=== PATIENT | male | born 1985 | race Hispanic/Latino ===

== ENCOUNTER 2020-09-04 11:09 | Emergency (ER) | payer BC, OTHER ==
[2020-09-04] MEDS ORDERED: ACETAMINOPHEN 500 MG TAB ONE (12:06)
[2020-09-04] MEDS ORDERED: ALBUTEROL 2.5 MG/3 ML NEB SOL ONE (12:06)
[2020-09-04] MEDS ORDERED: IPRATROPIUM BROM 0.5MG/2.5ML ONE (12:07)
[2020-09-04] MEDS ORDERED: dexAMETHasone 10 MG/ML VIAL ONE (12:28)
--- NOTE | 2020-09-04 13:10 | RAD REPORT ---
EXAM DESCRIPTION: RAD - Chest Single View - 09/04/2020 1:02 pm CLINICAL HISTORY: SOB Chest pain. COMPARISON: CHEST PA AND LAT 2 VIEW dated 11/01/2006 FINDINGS: Portable technique limits examination quality. Mild to moderate bilateral interstitial lung opacities are present most compatible with viral pneumon ia/ bronchitis. The heart is normal in size. No displaced fractures.
--- NOTE | 2020-09-04 13:53 | ER ---
Nurse's Notes [facility] Name: Jaun Hinkle Jr Age: 35 yrs Sex: Male : 1985 Arrival Date: 09/04/2020 Time: 11:19 Bed 13 Private MD: Diagnosis: Pneumonia due to SARS-associated coronavirus Presentation: 09/04 11:28 Chief complaint: Patient states: Started feeling sick 08/30/20. Had covid positive result ll1 Saturday. SOB for 3 days. States when he went to the clinic his O2 was 90-92% and WBC was low. Coronavirus screen: Client denies travel out of the [place] in the last 14 days. congestion, cough unrelated to allergies, difficulty breathing, fatigue, fever, headache, shortness of breath, Client presents with at least one sign or symptom that may indicate coronavirus-19. Standard/surgical mask placed on the client. Ebola Screen: Patient denies travel to an Ebola-affected area in the 21 days before illness onset. Initial Sepsis Screen: Does the patient meet any 2 criteria? HR > 90 bpm. No. Patient's initial sepsis screen is negative. Does the patient have a suspected source of infection? Yes: Productive cough/pneumonia. Risk Assessment: Do you want to hurt yourself or someone else? Patient reports no desire to harm self or others. Onset of symptoms was August 30, 2020. 11:28 Method Of Arrival: Ambulatory ll1 11:28 Acuity: SOM 3 ll1 Triage Assessment: 11:34 General: Appears in no apparent distress. Behavior is calm, cooperative, appropriate ll1 for age. Pain: Denies pain. Neuro: No deficits noted. Cardiovascular: No deficits noted. Respiratory: Reports shortness of breath cough that is Breath sounds are clear bilaterally. Onset: The symptoms/episode began/occurred 3 days, the patient has mild shortness of breath. Historical: - Allergies: 11:33 No Known Allergies; ll1 - PMHx: 11:33 None; ll1 - PSHx: 11:33 Appendectomy; eye sx; ll1 - Immunization history:: Flu vaccine is not up to date. - Social history:: Smoking status: Patient denies any tobacco usage or history of. Screenin:35 Abuse screen: Denies threats or abuse. Nutritional screening: No deficits noted. ll1 Tuberculosis screening: No symptoms or risk factors identified. Fall Risk None identified. Total Omrales Fall Scale indicates No Risk (0-24 pts). Assessment: 11:35 Cardiovascular: No deficits noted. Rhythm is regular. Respiratory: Airway is patent ll1 Trachea midline Respiratory effort is even, unlabored, Respiratory pattern is regular, symmetrical, Breath sounds are clear bilaterally. 12:30 Reassessment: No changes from previously documented assessment. Patient and/or family ll1 updated on plan of care and expected duration. Pain level reassessed. Patient states feeling better. 13:30 Reassessment: No changes from previously documented assessment. Patient and/or family ll1 updated on plan of care and expected duration. Pain level reassessed. 14:20 Reassessment: No changes from previously documented assessment. Patient and/or family ll1 updated on plan of care and expected duration. Pain level reassessed. Patient is alert, oriented x 3, equal unlabored respirations, skin warm/dry/pink. Patient states feeling better. Patient states symptoms have improved. Vital Signs: 11:28 BP 109 / 77; Pulse 108; Resp 18; Temp 100.4; Pulse Ox 90% ; Weight 97.07 kg; Height 5 ll1 ft. 9 in. (175.26 cm); Pain 0/10; 13:18 BP 96 / 65; Pulse 99; Resp 18; Temp 98.9; Pulse Ox 92% on R/A; ll1 13:32 Pulse Ox 93% on R/A; ll1 11:28 Body Mass Index 31.60 (97.07 kg, 175.26 cm) ll1 11:28 O2 sat 90-93% RA ll1 ED Course: 11:19 Patient arrived in ED. mr 11:27 Yong Kirkland, NAN is PHCP. pm1 11:27 Kristopher Valentin MD is Attending Physician. pm1 11:28 Celina Holden RN is Primary Nurse. ll1 11:32 Triage completed. ll1 11:32 Arm band placed on Patient placed in an exam room, on a stretcher. ll1 11:35 Patient has correct armband on for positive identification. Bed in low position. Call ll1 light in reach. Side rails up X 1. Pulse ox on. 13:02 Chest Single View XRAY In Process Unspecified. EDMS 14:23 No provider procedures requiring assistance completed. Patient did not have IV access ll1 during this emergency room visit. Administered Medications: 11:54 Drug: Albuterol - atroVENT (ipratropium) (3:1) (2.5 mg - 0.5 mg) 3 ml Route: Nebulizer; ll1 14:45 Follow up: Response: No adverse reaction; RASS: Alert and Calm (0) ll1 11:54 Drug: Tylenol 1000 mg Route: PO; ll1 14:45 Follow up: Response: No adverse reaction; Temperature is decreased; RASS: Alert and ll1 Calm (0) 12:15 Drug: Decadron (dexamethasone) 10 mg Route: IM; Site: right deltoid; ll1 14:45 Follow up: Response: No adverse reaction; RASS: Alert and Calm (0) 1 Outcome: 13:52 Discharge ordered by . pm1 14:23 Patient left the ED. ll1 14:23 Discharged to home ambulatory. ll1 14:23 Condition: stable 14:23 Discharge instructions given to patient, Instructed on discharge instructions, follow up and referral plans. medication usage, Demonstrated understanding of instructions, follow-up care, medications, Prescriptions given X 2. Signatures: Dispatcher [employer] Sarah Hoffman Patrick, NAN DIAGRAM CLERK pm1 Celina Holden RN RN 1
--- NOTE | 2020-09-04 13:53 | EDPHYS ---
Physician Documentation [facility] Name: Jaun Hinkle Jr Age: 35 yrs Sex: Male : 1985 Arrival Date: 09/04/2020 Time: 11:19 Bed 13 Private MD: ED Physician Kristopher Valentin HPI: 09/04 12:01 This 35 yrs old Male presents to ER via Ambulatory with complaints of pm1 COVID+,Abnormal labs, Shortness Of Breath. 12:01 The patient or guardian reports cough, flu symptoms. Onset: The symptoms/episode pm1 began/occurred 5 day(s) ago. Severity of symptoms: in the emergency department the symptoms are actually worse. Modifying factors: The symptoms are alleviated by nothing, the symptoms are aggravated by exertion. Associated signs and symptoms: Pertinent positives: fever, shortness of breath, Pertinent negatives: chest pain, sore throat. The patient has not experienced similar symptoms in the past. The patient has been recently seen by a physician: Patient with to a clinic on Saturday. Had blood work and swabs. Informed he had covid and written a prescription for dexamethasone and albuterol neb yesterday. Has labs with him. WBC is normal. Platelets were low at 85 . Historical: - Allergies: 11:33 No Known Allergies; ll1 - PMHx: 11:33 None; ll1 - PSHx: 11:33 Appendectomy; eye sx; ll1 - Immunization history:: Flu vaccine is not up to date. - Social history:: Smoking status: Patient denies any tobacco usage or history of. ROS: 12:01 ENT: Negative for injury, pain, and discharge, Neck: Negative for injury, pain, and pm1 swelling, Cardiovascular: Negative for chest pain, palpitations, and edema. 12:01 Abdomen/GI: Negative for abdominal pain, nausea, vomiting, diarrhea, and constipation, Back: Negative for injury and pain, MS/Extremity: Negative for injury and deformity, Skin: Negative for injury, rash, and discoloration, Neuro: Negative for headache, weakness, numbness, tingling, and seizure. 12:01 Constitutional: Positive for body aches, fever, Negative for poor PO intake. 12:01 Respiratory: Positive for cough, shortness of breath. Exam: 12:01 Constitutional: This is a well developed, well nourished patient who is awake, alert, pm1 and in no acute distress. Head/Face: Normocephalic, atraumatic. ENT: Nares patent. No nasal discharge, no septal abnormalities noted. Tympanic membranes are normal and external auditory canals are clear. Oropharynx with no redness, swelling, or masses, exudates, or evidence of obstruction, uvula midline. Mucous membranes moist. 12:01 Back: No spinal tenderness. No costovertebral tenderness. Full range of motion. Skin: Warm, dry with normal turgor. Normal color with no rashes, no lesions, and no evidence of cellulitis. MS/ Extremity: Pulses equal, no cyanosis. Neurovascular intact. Full, normal range of motion. 12:01 Cardiovascular: Exam negative for acute changes, Rate: tachycardic, actual rate is 108 bpm, Rhythm: regular, Pulses: no pulse deficits are appreciated. 12:01 Respiratory: the patient does not display signs of respiratory distress, Breath sounds: bronchial sounds, that are mild, are heard diffusely. 12:01 Abdomen/GI: Inspection: abdomen appears normal, Palpation: abdomen is soft and non-tender, in all quadrants. 12:01 Neuro: Exam negative for acute changes, Orientation: is normal, Mentation: is normal, Motor: is normal, moves all fours. Vital Signs: 11:28 BP 109 / 77; Pulse 108; Resp 18; Temp 100.4; Pulse Ox 90% ; Weight 97.07 kg; Height 5 ll1 ft. 9 in. (175.26 cm); Pain 0/10; 13:18 BP 96 / 65; Pulse 99; Resp 18; Temp 98.9; Pulse Ox 92% on R/A; ll1 13:32 Pulse Ox 93% on R/A; ll1 11:28 Body Mass Index 31.60 (97.07 kg, 175.26 cm) ll1 11:28 O2 sat 90-93% RA ll1 MDM: 11:29 Patient medically screened. pm1 12:50 Data reviewed: vital signs. pm1 13:51 Counseling: I had a detailed discussion with the patient and/or guardian regarding: the pm1 historical points, exam findings, and any diagnostic results supporting the discharge/admit diagnosis, radiology results, the need for outpatient follow up, to return to the emergency department if symptoms worsen or persist or if there are any questions or concerns that arise at home. 13:53 ED course: Walked with patient around the ER and he does not have any shortness of pm1 breath. He said he feels ready to go home. Due to wheezing present at initial presentation, patient will need steroids. Given dosage here in the ER and he has a prescription for dexamethasone and albuterol nebulizer already. 09/04 11:40 Order name: Chest Single View XRAY; Complete Time: 13:17 pm1 Administered Medications: 11:54 Drug: Albuterol - atroVENT (ipratropium) (3:1) (2.5 mg - 0.5 mg) 3 ml Route: Nebulizer; ll1 14:45 Follow up: Response: No adverse reaction; RASS: Alert and Calm (0) ll1 11:54 Drug: Tylenol 1000 mg Route: PO; ll1 14:45 Follow up: Response: No adverse reaction; Temperature is decreased; RASS: Alert and ll1 Calm (0) 12:15 Drug: Decadron (dexamethasone) 10 mg Route: IM; Site: right deltoid; ll1 14:45 Follow up: Response: No adverse reaction; RASS: Alert and Calm (0) ll1 Disposition: 14:24 Co-signature as Attending Physician, Kristopher Valentin MD. rn Disposition: 09/04/20 13:52 Discharged to Home. Impression: Pneumonia due to SARS-associated coronavirus. - Condition is Stable. - Discharge Instructions: COVID-19. - Prescriptions for Prednisone 20 mg Oral Tablet - take 3 tablet by ORAL route once daily for 5 days; 15 tablet. Guaifenesin AC 10- 100 mg/5 mL Oral Liquid - take 10 milliliter by ORAL route every 4 hours As needed; 240 milliliter. - Medication Reconciliation Form, Thank You Letter, Antibiotic Education, Prescription Opioid Use form. - Follow up: Emergency Department; When: As needed; Reason: Worsening of condition. Follow up: Private Physician; When: 2 - 3 days. - Problem is new. - Symptoms have improved. Signatures: Dispatcher [employer] EDMS Kristopher Valentin MD MD rn Marinas, Patrick, NAN [address] MAGISTRATE pm1 Celina Holden RN RN ll1 Corrections: (The following items were deleted from the chart) 13:58 13:53 ED course: Walked with patient around the ER and he does not have any shortness pm1 of breath. He said he feels ready to go home. Due to wheezing present at initial presentation, will discharge home with steroids. Patient has albuterol nebulizer at home. pm1 14:23 13:52 09/04/2020 13:52 Discharged to Home. Impression: Pneumonia due to SARS-associated ll1 coronavirus. Condition is Stable. Forms are Medication Reconciliation Form, Thank You Letter, Antibiotic Education, Prescription Opioid Use. Follow up: Emergency Department; When: As needed; Reason: Worsening of condition. Follow up: Private Physician; When: 2 - 3 days. Problem is new. Symptoms have improved. pm1
[2020-09-04 14:29] VITALS: BP 96/65; TEMP 98.9
[2020-09-04 14:30] VITALS: O2SAT 93
== END 2020-09-04 14:23 | disposition home or self-care (01) ==
LOC: ER 11:09
DX: U07.1 COVID-19 (principal); J12.82 Pneumonia due to coronavirus disease 2019
CPT/HCPCS: 71045; 96372; 99284; J1100

== ENCOUNTER 2020-09-06 17:12 | Emergency (ER) | payer BC ==
--- NOTE | 2020-09-06 18:00 | RAD REPORT ---
EXAM DESCRIPTION: RAD - Chest Single View - 09/06/2020 5:42 pm CLINICAL HISTORY: DYSPNEA, COVID positive COMPARISON: September 04 TECHNIQUE: AP portable chest image was obtained 09/06/2020 5:42 pm . FINDINGS: Bilateral pneumonia changes are still present with mid and upper lung field opacification improved on the current examination. Patient still has significant bilateral pneumonia findings. No c avitation. Trachea is midline. Heart and vasculature are normal. No measurable pleural effusion and n o pneumothorax. No acute bony abnormality seen. No acute aortic findings suspected. IMPRESSION: Bilateral pneumonia pattern is present but shows improvement from the September 04 study.
[2020-09-06 18:03] LABS: Absolute Lymphocytes (CBC) 0.5 K/uL (0.7-4.9); Basophils % 0.3 % (0-1.3); Hematocrit 46.4 % (39.6-49.0); Lymphocytes % 4.6 % (15.3-44.8); MPV 12.2 fL (7.6-11.3); RBC Red Blood Cell Count 5.37 M/uL (4.33-5.43)
[2020-09-06 18:25] LABS: Protime INR 1.07
[2020-09-06 18:31] LABS: ALT/SGPT 98 U/L (12-78); AST/SGOT 57 U/L (15-37); Albumin 3.2 g/dL (3.4-5.0); Alkaline Phosphatase 54 U/L (45-117); BUN Blood Urea Nitrogen 16 mg/dL (7-18); Bicarbonate 24 mmol/L (21-32); Bilirubin Direct 0.4 mg/dL (0-0.2); Bilirubin Total 1.1 mg/dL (0.2-1.0); Ferritin 1368.5 ng/mL (26-388); Glucose Level 159 mg/dL (74-106); Lipase 181 U/L (73-393); Potassium 4.2 mmol/L (3.5-5.1); Protein, Total 7.9 g/dL (6.4-8.2); Sodium Level 134 mmol/L (136-145); Troponin (Emerg Dept Use Only) < 0.02 ng/mL (0.0-0.045)
[2020-09-06 18:48] LABS: Blood Morphology Comment NOT SEEN (NOT SEEN); Platelet Estimate ADEQ; White Blood Cell Scan OK (OK)
--- NOTE | 2020-09-06 20:00 | RAD REPORT ---
EXAM DESCRIPTION: CT - Chest For Pe Angio - 09/06/2020 7:45 pm CLINICAL HISTORY: DYSPNEA, COVID positive, shortness of breath COMPARISON: Chest Single View dated 09/06/2020 TECHNIQUE: Dynamically enhanced 3 mm thick images of the chest were obtained during administration o f approximately 150mL Isovue 370 IV contrast. Coronal and oblique MIP reconstruction images were gene rated and reviewed. Exam utilizes a protocol to evaluate the pulmonary arterial tree. All CT scans are performed using dose optimization technique as appropriate and may include automated exposure control or mA/KV adjustment according to patient size. FINDINGS: No pulmonary emboli are identified. Far peripheral branch assessment at each lung base [place] ited due to motion. Probability of pulmonary embolic disease is felt to be very low. The aorta as imaged shows no acute or suspicious finding. No pericardial thickening or effusion. Ground-glass opacification scattered throughout all lung corey. None no dense consolidation, mass, c avitation or other significant finding. No pleural effusion or pleural thickening. No mediastinal or hilar suspicious masses. No chest wall masses or abnormal axillary lymphadenopathy. IMPRESSION: No pulmonary emboli identified. Moderate severity bilateral COVID-19 pneumonia.
--- NOTE | 2020-09-06 20:06 | ER ---
Nurse's Notes [facility] Name: Jaun Hinkle Jr Age: 35 yrs Sex: Male : 1985 Arrival Date: 09/06/2020 Time: 17:13 Bed 25 Private MD: Diagnosis: Dyspnea;Coronavirus infection, unspecified Presentation: 09/06 17:23 Chief complaint: Patient states: was COVID + on Saturday, is feeling more SIB over past iw two days. Coronavirus screen: shortness of breath. Ebola Screen: Patient negative for fever greater than or equal to 101.5 degrees Fahrenheit, and additional compatible Ebola Virus Disease symptoms Patient denies exposure to infectious person. Patient denies travel to an Ebola-affected area in the 21 days before illness onset. No symptoms or risks identified at this time. Initial Sepsis Screen: Does the patient meet any 2 criteria? No. Patient's initial sepsis screen is negative. Does the patient have a suspected source of infection? No. Patient's initial sepsis screen is negative. Risk Assessment: Do you want to hurt yourself or someone else? Patient reports no desire to harm self or others. Onset of symptoms was September 05, 2020. 17:23 Method Of Arrival: Ambulatory iw 17:23 Acuity: SOM 3 iw Triage Assessment: 17:35 General: Appears in no apparent distress. Respiratory: Onset: The symptoms/episode iw began/occurred yesterday, the patient has mild shortness of breath. Respiratory: Airway is patent Respiratory effort is even, unlabored. Historical: - Allergies: 17:25 No Known Allergies; iw - PMHx: 17:25 None; iw - PSHx: 17:25 Appendectomy; eye sx; iw - Immunization history:: Adult Immunizations unknown. - Social history:: Smoking status: unknown. Screenin:11 Abuse screen: Denies threats or abuse. Denies injuries from another. Nutritional iw screening: No deficits noted. Tuberculosis screening: No symptoms or risk factors identified. Fall Risk IV access (20 points). Assessment: 17:30 General: Appears in no apparent distress. Behavior is calm, cooperative. Pain: Denies iw pain. Neuro: Level of Consciousness is awake, alert, obeys commands, Oriented to person, place, time, situation, Moves all extremities. Full function. Cardiovascular: Rhythm is regular. Respiratory: Reports shortness of breath at rest on exertion Airway is patent Respiratory effort is even, unlabored, Breath sounds are clear bilaterally. GI: No signs and/or symptoms were reported involving the gastrointestinal system. Derm: Skin is intact, is healthy with good turgor. Musculoskeletal: Range of motion: intact in all extremities. 18:11 Reassessment: Patient appears in no apparent distress at this time. Patient and/or iw family updated on plan of care and expected duration. Pain level reassessed. Patient is alert, oriented x 3, equal unlabored respirations, skin warm/dry/pink. 19:50 Reassessment: Patient appears in no apparent distress at this time. returned from CT. em Vital Signs: 17:23 BP 121 / 83; Pulse 101; Resp 20 S; Temp 98.7; Pulse Ox 95% on R/A; iw 18:11 BP 111 / 78; Pulse 93; Resp 20 S; Pulse Ox 97% on R/A; iw 19:50 BP 116 / 74; Pulse 89; Resp 18; Pulse Ox 95% on R/A; em ED Course: 16:00 Patient has correct armband on for positive identification. iw 17:13 Patient arrived in ED. ds1 17:16 Rick Munoz MD is Attending Physician. kdr 17:16 Marissa Vicente FNP-C [facility]. kb 17:24 Triage completed. iw 17:30 Patient placed. iw 17:38 CXR XRAY In Process Unspecified. EDMS 17:43 Initial lab(s) drawn, by me, sent to lab. Inserted saline lock: 20 gauge in right iw antecubital area, using aseptic technique. Blood collected. 17:48 Micki Dinero, RN is Primary Nurse. iw 19:45 CT Chest For PE Angio In Process Unspecified. EDMS 20:27 No provider procedures requiring assistance completed. IV discontinued, intact, em bleeding controlled, No redness/swelling at site. Pressure dressing applied. Administered Medications: No medications were administered Outcome: 20:05 Discharge ordered by . kb 20:27 Discharged to home ambulatory, with family. em 20:27 Condition: stable 20:27 Discharge instructions given to patient, family, Instructed on discharge instructions, follow up and referral plans. Demonstrated understanding of instructions, follow-up care. 20:28 Patient left the ED. em Signatures: Dispatcher [employer] Marissa Schwarz, [employer]ION PI[employer]URE [employer] WORKER-C [employer] PI[employer]URE SET WORKER-Ckb Rick Munoz MD MD kdr Munoz, Edgar, RN RN Mayra Flower ds1 Micki Dinero RN RN iw
--- NOTE | 2020-09-06 20:06 | EDPHYS ---
Physician Documentation [facility] Name: Jaun Hinkle Jr Age: 35 yrs Sex: Male : 1985 Arrival Date: 09/06/2020 Time: 17:13 Bed 25 Private MD: ED Physician Rick Munoz HPI: 09/06 19:35 This 35 yrs old Male presents to ER via Ambulatory with complaints of kb Shortness Of Breath. 19:35 The patient has shortness of breath at rest. Onset: The symptoms/episode began/occurred kb 3 day(s) ago. Duration: The symptoms are continuous. The patient's shortness of breath is aggravated by exertion. Associated signs and symptoms: Pertinent positives: non-productive cough, fever. Severity of symptoms: At their worst the symptoms were moderate in the emergency department the symptoms are unchanged. The patient has not experienced similar symptoms in the past. The patient has been recently seen at the [facility] Emergency Department. Pt reports he was diagnosed with covid 3 days ago. presents today because shortness of breath has gotten worse. Historical: - Allergies: 17:25 No Known Allergies; iw - PMHx: 17:25 None; iw - PSHx: 17:25 Appendectomy; eye sx; iw - Immunization history:: Adult Immunizations unknown. - Social history:: Smoking status: unknown. ROS: 19:34 ENT: Negative for injury, pain, and discharge, Cardiovascular: Negative for chest pain, kb palpitations, and edema, Abdomen/GI: Negative for abdominal pain, nausea, vomiting, diarrhea, and constipation, MS/Extremity: Negative for injury and deformity, Skin: Negative for injury, rash, and discoloration, Neuro: Negative for headache, weakness, numbness, tingling, and seizure. 19:34 Constitutional: Positive for fever. 19:34 Respiratory: Positive for dyspnea on exertion, shortness of breath. Exam: 19:34 Constitutional: This is a well developed, well nourished patient who is awake, alert, kb and in no acute distress. Head/Face: Normocephalic, atraumatic. Cardiovascular: Regular rate and rhythm with a normal S1 and S2. No gallops, murmurs, or rubs. No pulse deficits. Respiratory: Respirations even and unlabored. No increased work of breathing, no retractions or nasal flaring. Abdomen/GI: Soft, non-tender. No distention Skin: Warm, dry with normal turgor. Normal color. MS/ Extremity: Pulses equal, no cyanosis. Neurovascular intact. Full, normal range of motion. Neuro: Awake and alert, GCS 15, oriented to person, place, time, and situation. Moves all extremities. Normal gait. 19:34 ECG was reviewed by the Attending Physician. Vital Signs: 17:23 BP 121 / 83; Pulse 101; Resp 20 S; Temp 98.7; Pulse Ox 95% on R/A; iw 18:11 BP 111 / 78; Pulse 93; Resp 20 S; Pulse Ox 97% on R/A; iw 19:50 BP 116 / 74; Pulse 89; Resp 18; Pulse Ox 95% on R/A; em MDM: 17:17 Patient medically screened. kb 19:34 Data reviewed: vital signs, nurses notes. Data interpreted: Pulse oximetry: on room air kb is 97 %. Interpretation: normal. Counseling: I had a detailed discussion with the patient and/or guardian regarding: the historical points, exam findings, and any diagnostic results supporting the discharge/admit diagnosis, lab results, radiology results, the need for outpatient follow up, a family practitioner, to return to the emergency department if symptoms worsen or persist or if there are any questions or concerns that arise at home. 09/06 17:18 Order name: D-Dimer 09/06 17:18 Order name: Blood Culture Adult (2) 09/06 17:18 Order name: BMP kb 09/06 17:18 Order name: C-Reactive Protein 09/06 17:18 Order name: CBC with Diff; Complete Time: 18:48 kb 09/06 17:18 Order name: Ferritin; Complete Time: 18:41 kb 09/06 17:18 Order name: Lactate; Complete Time: 18:41 kb 09/06 17:18 Order name: LFT's; Complete Time: 18:41 kb 09/06 17:18 Order name: Lipase; Complete Time: 18:41 kb 09/06 17:18 Order name: Procalcitonin; Complete Time: 19:04 kb 09/06 17:18 Order name: PT-INR; Complete Time: 18:41 kb 09/06 17:18 Order name: Ptt, Activated; Complete Time: 18:41 kb 09/06 17:18 Order name: Troponin (emerg Dept Use Only); Complete Time: 18:41 kb 09/06 17:19 Order name: D-Dimer; Complete Time: 18:41 EDMS 09/06 17:18 Order name: CXR XRAY; Complete Time: 18:12 kb 09/06 17:18 Order name: EKG; Complete Time: 17:19 kb 09/06 17:18 Order name: Cardiac monitoring; Complete Time: 18:22 kb 09/06 17:18 Order name: Droplet/Contact Precautions; Complete Time: 17:43 kb 09/06 17:18 Order name: EKG - Nurse/Tech; Complete Time: 18:22 kb 09/06 17:18 Order name: IV Start; Complete Time: 17:42 kb 09/06 17:18 Order name: Labs collected and sent; Complete Time: 17:43 kb 09/06 17:18 Order name: O2 Per Protocol; Complete Time: 17:43 kb 09/06 17:18 Order name: O2 Sat Monitoring; Complete Time: 17:43 kb 09/06 17:19 Order name: Blood Culture EDMS 09/06 17:19 Order name: Basic Metabolic Panel; Complete Time: 18:41 EDMS 09/06 17:19 Order name: C-Reactive Protein; Complete Time: 18:41 EDMS 09/06 18:42 Order name: CT Chest For PE Angio; Complete Time: 20:05 kb 09/06 18:48 Order name: CBC Smear Scan; Complete Time: 18:48 EDMS EC:34 Rate is 92 beats/min. Rhythm is regular. QRS Mound is Normal. CO interval is normal at kb 152 msec. QRS interval is normal at 102 msec. QT interval is normal at 352 msec. Administered Medications: No medications were administered Disposition: 09/07 06:10 Co-signature as Attending Physician, Rick Munoz MD I agree with the assessment and kdr plan of care. Disposition: 09/06/20 20:05 Discharged to Home. Impression: Dyspnea, Coronavirus infection, unspecified. - Condition is Stable. - Discharge Instructions: Shortness of Breath, [id number], Viral Respiratory Infection, [id number], COVID-19. - Medication Reconciliation Form, Thank You Letter, Antibiotic Education, Prescription Opioid Use form. - Follow up: Emergency Department; When: As needed; Reason: Worsening of condition. Follow up: Private Physician; When: 2 - 3 days; Reason: Recheck today's complaints, Continuance of care, Re-evaluation by your physician. Signatures: Dispatcher [employer] EDNir Riveristin, POLITICAL CARTOONIST-C POLITICAL CARTOONIST-Rick Hugo MD MD [facility] Isai Weiner RN RN em Micki Dinero RN RN iw Corrections: (The following items were deleted from the chart) 09/06 20:28 20:05 09/06/2020 20:05 Discharged to Home. Impression: Dyspnea; Coronavirus infection, em unspecified. Condition is Stable. Discharge Instructions: Shortness of Breath, Bpil-[id number], Viral Respiratory Infection, Tvbr-Vt-Afgo, COVID-19. Forms are Medication Reconciliation Form, Thank You Letter, Antibiotic Education, Prescription Opioid Use. Follow up: Emergency Department; When: As needed; Reason: Worsening of condition. Follow up: Private Physician; When: 2 - 3 days; Reason: Recheck today's complaints, Continuance of care, Re-evaluation by your physician. kb
[2020-09-06 20:34] VITALS: TEMP 98.7
[2020-09-06 20:37] VITALS: BP 116/74; O2SAT 95
--- NOTE | 2020-09-08 07:40 | EKG ---
Test Date: 2020-09-06 Test Time: 18:04:12 Moth Proofer: STEPHANIA MEASUREMENT RESULTS: Intervals: Rate: 92 NE: 152 QRSD: 102 QT: 352 QTc: 435 [place]: P: 29 NE: 152 QRS: 48 T: 37 INTERPRETIVE STATEMENTS: Normal sinus rhythm Incomplete right bundle branch block Borderline ECG Compared to ECG 10/08/2001 23:47:00 Incomplete right bundle-branch block now present Sinus bradycardia no longer present Atrial premature complex(es) no longer present Electronically Signed On 09-08-20 07:35:10 CDT by Bradford Hudson
== END 2020-09-06 20:28 | disposition home or self-care (01) ==
LOC: ER 17:12
DX: R06.02 Shortness of breath (principal); U07.1 COVID-19
CPT/HCPCS: 36415; 71045; 71275; 80048; 80076; 82728; 83605; 83690; 84145; 84484; 85025; 85379; 85610; 85730; 86140; 87040; 93005; 99283; Q9967